=== PATIENT | male | born 1995 | race Caucasian/White ===

== ENCOUNTER 2023-10-18 08:41 | Emergency (ER) | payer SELFPAY ==
[~2023-10-18] VITALS: Ht 167.6 cm; Wt 87.0 kg
[2023-10-18 08:45] VITALS: TEMP 98.5
[2023-10-18 08:46] VITALS: O2SAT 100
[2023-10-18] MEDS ORDERED: DEXAMETHASONE 4MG TABLET PO STA (12:13)
[2023-10-18] MEDS ORDERED: AMOX-494 MT (12:59)
[2023-10-18] MEDS ORDERED: NAPR-681 MT (12:59)
[2023-10-18] MEDS: DEXAMETHASONE 4MG TABLET PO NR (13:32)
[2023-10-18] MEDS: DEXAMETHASONE 6MG TABLET PO NR (13:32)
[2023-10-18 13:42] VITALS: BP 127/82; PULSE 90; RESP 14
== END 2023-10-18 13:46 | disposition home or self-care (01) ==
LOC: ER 08:41
DX: J02.9 Acute pharyngitis, unspecified (principal)
CPT/HCPCS: 99283; J8540